=== PATIENT | female | born 1970 | race Caucasian/White ===

== ENCOUNTER 2019-09-03 10:28 | Emergency (ER) | payer BC, SELFPAY ==
[2019-09-03 10:35] VITALS: BP 160/89; PULSE 90; RESP 16; TEMP 38.8; O2SAT 97
--- NOTE | 2019-09-03 10:53 | ED.GENADULT ---
HPI - General Adult General Chief complaint: Upper Respiratory Infection Stated complaint: VILLAGRAN/ears/sinus/cough Time Seen by Provider: 09/03/19 10:53 Source: patient Mode of arrival: ambulatory Limitations: no limitations History of Present Illness HPI narrative: 49-year-old female patient presents to the [facility] with complaints of cold and flulike symptoms for the past 3 days. Patient states that she recently came back from [place] with her symptoms started. Patient states she has had body aches, chills, fevers, coughing, sinus pressure, runny nose. Patient states that she did not get a flu shot this year. Denies any chest pain or shortness of breath. Related Data Home Medications Medication Instructions Recorded Confirmed lisinopril 10 mg DAILY 09/03/19 09/03/19 Allergies Allergy/AdvReac Type Severity Reaction Status Date / Time No Known Allergies Allergy Verified 09/03/19 10:30 Review of Systems Review of Systems: Narrative: CONSTITUTIONAL: Positive fever, body aches, chills, and sweats. EYES: Denies visual changes, redness, or discharge. ENT: Positive rhinorrhea, congestion, denies sore throat, or otalgia. CARDIOVASCULAR: Denies chest pain, palpitations, or edema. RESPIRATORY: Positive cough denies dyspnea. GASTROINTESTINAL: Denies abdominal pain, nausea, vomiting, or diarrhea. GENITOURINARY: Denies dysuria or hematuria. SKIN: Denies rash or itching. MUSCULOSKELETAL: Denies back pain, joint pain, or myalgia. NEUROLOGIC: Positive headache, denies numbness, or weakness. PSYCHIATRIC: Denies anxiety or depression. PMFSH Past Medical History Medical History (Updated 09/03/19 @ 10:59 by [place] Monzon) Hypertension Social History Social History Gender identity (if verbalized by the patient): Female Comments At the time of my signature I agree with nursing past medical history, surgical, social, and family history. There is no relevant family history pertinent to the presenting complaint. Exam Narrative: Exam Narrative: GENERAL: ill-appearing, well-nourished, and in no acute distress. HEAD: Normocephalic, atraumatic. Mild tenderness noted to maxillary sinuses on palpation EYES: PERRLA and EOMI. ENT: Nares clear, no rhinorrhea or epistaxis. Mucous membranes moist. Posterior pharynx with no erythema, tonsil enlargement, exudates or lesions present. Bilateral TMs are clear no erythema or foreign bodies in the canal. NECK: Supple. No lymphadenopathy CHEST: Clear to auscultation. No respiratory distress. HEART: Regular rate and rhythm. No murmur heard. Normal peripheral pulses. ABDOMEN: Soft, nontender, nondistended, normal active bowel sounds. EXTREMITIES: Normal range of motion. No edema. SKIN: Warm, dry, no rash. NEURO: No focal deficits. Alert and oriented x3. Course Vital Signs Vital signs: Vital Signs Temperature 38.8 C H 09/03/19 10:35 Pulse Rate 90 09/03/19 10:35 Respiratory Rate 16 09/03/19 10:35 Blood Pressure 160/89 H 09/03/19 10:35 Pulse Oximetry 97 09/03/19 10:35 Temperature 38.8 C H 09/03/19 10:35 Pulse Rate 90 09/03/19 10:35 Respiratory Rate 16 09/03/19 10:35 Blood Pressure 160/89 H 09/03/19 10:35 Pulse Oximetry 97 09/03/19 10:35 Vital signs reviewed. The patient has been informed that they may have pre-hypertension or Hypertension based on a BP reading in the department. I recommend that the patient call the primary care provider listed on their discharge instructions or a physician of their choice this week to arrange follow up for further evaluation of possible pre-hypertension or Hypertension Medical Decision Making Differential Diagnosis Differential Diagnosis: Differential diagnosis: Allergic rhinitis, chronic sinusitis, tonsillitis, acute sinusitis, infectious mononucleosis, seasonal influenza, pertussis, diphtheria, meningococcal disease, viral syndrome, viral bronchitis, RSV. Ariana
== END 2019-09-03 11:01 | disposition home or self-care (01) ==
PROVIDERS: Emergency Provider Nurse Practitioner Family
DX: J10.1 Influenza due to other identified influenza virus with other respiratory manifestations (principal); I10 Essential (primary) hypertension
CPT/HCPCS: 87081; 87804; 87880; 99213; G0463

== ENCOUNTER 2020-10-14 08:02 | Outpatient (CLI) | payer BC, SELFPAY | END 2020-10-14 08:03 | disposition home or self-care (01) | LOC: ANHCOVIDVC 08:02 | PROVIDERS: PCP Family Medicine | DX: Z23 Encounter for immunization (principal) | CPT/HCPCS: 0001A; 91300 ==

== ENCOUNTER 2020-11-04 07:58 | Outpatient (CLI) | payer BC, SELFPAY | END 2020-11-04 07:59 | disposition home or self-care (01) | LOC: ANHCOVIDVC 07:58 | PROVIDERS: PCP Family Medicine | DX: Z23 Encounter for immunization (principal) | CPT/HCPCS: 0002A; 91300 ==

== ENCOUNTER 2021-04-11 09:06 | Outpatient (CLI) | payer BC, SELFPAY ==
--- NOTE | ~2021-04-11 | MM_ITS ---
EXAMINATION: MM screening [facility] BI w wilfredo HISTORY: Screening mammogram TECHNIQUE: Craniocaudal and mediolateral oblique 3-D tomosynthesis images were obtained and synthetic 2-D images were generated. CAD analysis was submitted and interpreted. COMPARISON: 06/07/2019, 02/07/2018, 10/04/2015 BREAST PARENCHYMAL COMPOSITION: There are scattered areas of fibroglandular density. FINDINGS: There is no evidence of suspicious mass, calcification, or architectural distortion to sugg est malignancy in either breast. There has been no suspicious interval change. IMPRESSION: 1. No mammographic evidence of malignancy. 2. Recommend routine screening mammography in one year. BI-RADS Category 1: Negative Reviewed, dictated and finalized at location A.
== END 2021-04-11 09:07 | disposition home or self-care (01) ==
LOC: ANHIMG 09:08
PROVIDERS: PCP Family Medicine; Visit Provider Obstetrics & Gynecology
DX: Z12.31 Encounter for screening mammogram for malignant neoplasm of breast (principal)
CPT/HCPCS: 77063; 77067

== ENCOUNTER → 2021-08-05 08:59 | Outpatient (REF) | payer BC, SELFPAY | LOC: ANHLAB 08:59 | PROVIDERS: PCP Family Medicine; Visit Provider Nurse Practitioner | DX: D22.39 Melanocytic nevi of other parts of face (principal); C44.1222 Squamous cell carcinoma of skin of right lower eyelid, including canthus; C44.1221 Squamous cell carcinoma of skin of right upper eyelid, including canthus | CPT/HCPCS: 88305; 88342 ==

== ENCOUNTER → 2021-09-01 09:12 | Outpatient (REF) | payer BC, SELFPAY | LOC: ANHLAB 09:12 | PROVIDERS: PCP Family Medicine; Visit Provider Nurse Practitioner | DX: C44.121 Squamous cell carcinoma of skin of unspecified eyelid, including canthus (principal) | CPT/HCPCS: 88305; 88331 ==

== ENCOUNTER 2022-12-31 10:38 | Outpatient (CLI) | payer BC, SELFPAY ==
--- NOTE | ~2022-12-31 | MM_ITS ---
EXAMINATION: MM screening [facility] BI w wilfredo HISTORY: Screening mammogram TECHNIQUE: Craniocaudal and mediolateral oblique 3-D tomosynthesis images were obtained and synthetic 2-D images were generated. CAD analysis was submitted and interpreted. COMPARISON: 04/11/2021, 06/2019 bilateral screening mammogram examinations BREAST PARENCHYMAL COMPOSITION: There are scattered areas of fibroglandular density. FINDINGS: Small new opacity is suggested in the posterior mid to lower right breast on MLO view. Diag nostic right mammogram is recommended, with ultrasound if required. Otherwise there is no evidence of suspicious mass, calcification, or architectural distortion to sugg est malignancy in either breast. There has been no other suspicious interval change. IMPRESSION: 1. Possible new opacity at mid and lower posterior right breast on screening MLO view 2. Diagnostic right mammogram is recommended, with ultrasound if required BI-RADS Category 0: Incomplete: Needs additional imaging evaluation. Reviewed, dictated and finalized at location A. IMPRESSION: 1. Possible new opacity at mid and lower posterior right breast on screening ML O view 2. Diagnostic right mammogram is recommended, with ultrasound if required BI-RADS Category 0: Incomplete: Needs additional imaging evaluation.
== END 2022-12-31 10:39 | disposition home or self-care (01) ==
PROVIDERS: PCP Family Medicine; Visit Provider Obstetrics & Gynecology
DX: Z12.31 Encounter for screening mammogram for malignant neoplasm of breast (principal); R92.8 Other abnormal and inconclusive findings on diagnostic imaging of breast
CPT/HCPCS: 77063; 77067

== ENCOUNTER 2023-01-19 11:17 | Outpatient (CLI) | payer BC, SELFPAY ==
--- NOTE | ~2023-01-19 | MMUS_ITS ---
EXAMINATION: MM diagnostic [facility] RT w wilfredo, US breast RT complete HISTORY: Follow-up right breast mass TECHNIQUE: Additional 3-D tomosynthesis images of the right breast were performed and synthetic 2-D i mages were generated. CAD analysis was submitted and interpreted. High resolution right complete [address] ultrasound was performed. COMPARISON: Comparison to multiple prior studies sequentially, with oldest reviewed study dated 03/29. BREAST PARENCHYMAL COMPOSITION: Breast composed of scattered areas of fibroglandular density FINDINGS: MAMMOGRAPHIC FINDINGS: There is a focal asymmetry medially in the right breast on spot cc view without corresponding abnorma lity on medial lateral or spot MLO views. There is a small mass in the lower outer quadrant of the ri ght breast with central lucency and circumscribed margins, posterior third, likely benign. ULTRASOUND: Complete US of all 4 quadrants of the right breast and retroareolar region was reviewed. Normal heter ogeneous echotexture without focal solid or cystic mass. IMPRESSION: 1. Probable benign mammographic findings. No sonographic correlate. 2. Recommend 6 month follow-up diagnostic right mammogram with possible additional ultrasound. BI-RADS category 3, probably benign findings. Reviewed, dictated and finalized at location A. IMPRESSION: 1. Probable benign mammographic findings. No sonographic correlate. 2. Recommend 6 month follow-up diagnostic right mammogram with possible additio nal ultrasound. BI-RADS category 3, probably benign findings.
== END 2023-01-19 11:18 | disposition home or self-care (01) ==
PROVIDERS: PCP Family Medicine; Visit Provider Obstetrics & Gynecology
DX: R92.8 Other abnormal and inconclusive findings on diagnostic imaging of breast (principal)
CPT/HCPCS: 76641; 77061; 77065; G0279

== ENCOUNTER 2023-09-07 10:55 | Outpatient (CLI) | payer BC, SELFPAY ==
--- NOTE | ~2023-09-07 | MMUS_ITS ---
EXAMINATION: MM diagnostic [facility] RT w wilfredo, US breast RT complete HISTORY: Six-month follow-up of probable benign mammographic findings on 01/19/2023 diagnostic right m ammogram TECHNIQUE: Full field ML and spot MLO and CC 3-D tomosynthesis images of the right breast were perfor med and synthetic 2-D images were generated. CAD analysis was submitted and interpreted. High resolut ion complete right breast ultrasound examination including all 4 quadrants and subareolar area was pe rformed. COMPARISON: 01/19/2023 diagnostic right mammogram and complete right breast ultrasound examination 12/31/2022 bilateral screening mammogram BREAST PARENCHYMAL COMPOSITION: There are scattered areas of fibroglandular density. FINDINGS: MAMMOGRAPHIC FINDINGS: No suspicious mass or architectural distortion, malignant calcification, skin thickening or retractio n is evident. ULTRASOUND: A normal appearing lymph node is identified in the right axillary area, with homogeneous echogenicity and relatively uniform thickness of the cortex, no associated abnormal echogenicity or shadowing. No suspicious mass or shadowing or other significant sonographic abnormality of the right breast is d etected. IMPRESSION: 1. No evidence of malignancy 2. Routine annual mammographic screening is recommended BI-RADS Category 1: Negative Reviewed, dictated and finalized at location A. [employer] IMPRESSION: 1. No evidence of malignancy 2. Routine annual mammographic screening is recommended BI-RADS Category 1: Negative
== END 2023-09-07 10:56 | disposition home or self-care (01) ==
PROVIDERS: PCP Family Medicine; Visit Provider Obstetrics & Gynecology
DX: R92.8 Other abnormal and inconclusive findings on diagnostic imaging of breast (principal)
CPT/HCPCS: 76641; 77061; 77065; G0279